=== PATIENT | female | born 1945 | race Caucasian/White ===

== ENCOUNTER 2021-03-22 21:10 | Emergency (ER) | payer MEDICARE, OTHER ==
[~2021-03-22] VITALS: Ht 162.6 cm; Wt 81.6 kg
--- NOTE | 2021-03-22 21:22 | NUR ---
Pt here for recheck of her cough, was seen here last week. Patient AAOX4. Denies any cardiovascular concern. No /GI concern.
--- NOTE | 2021-03-22 21:26 | NUR ---
Dr. Saez on bedside for MSE.
[2021-03-22] MEDS ORDERED: OXYCODONE/APAP 5-325 MG TABLET PO ONE ×2 (21:30→23:45)
[2021-03-22] MEDS ORDERED: MAG HYDROX/AL HYDROX/SIMETH 30 ML LIQUID UDC PO ONE (21:30)
[2021-03-22 21:38] LABS: BASOPHILS # (AUTO) 0.1 K/uL (0.0-8.0); BASOPHILS % (AUTO) 0.5 % (0.0-2.0); EOSINOPHILS # (AUTO) 0.7 K/uL (0.0-0.7); EOSINOPHILS % (AUTO) 3.6 % (0.0-7.0); HEMATOCRIT 35.8 % (31.2-41.9); HEMOGLOBIN 11.4 g/dL (10.9-14.3); LYMPHOCYTES # (AUTO) 4.2 K/uL (20.0-40.0); LYMPHOCYTES % (AUTO) 22.5 % (20.5-51.5); MEAN CORPUSCULAR HEMOGLOBIN 23.2 uug (24.7-32.8); MEAN CORPUSCULAR HGB CONC 32 g/dL (32.3-35.6); MEAN CORPUSCULAR VOLUME 72.5 fL (75.5-95.3); MONOCYTES % (AUTO) 5.4 % (0.0-11.0); NEUTROPHILS # (AUTO) 12.7 K/uL (1.8-8.9); PLATELET COUNT (AUTO) 387 K/uL (179-408); RED BLOOD CELL COUNT(AUTO) 4.93 MIL/uL (3.63-4.92); WHITE BLOOD COUNT (AUTO) 18.7 K/uL (3.8-11.8)
[2021-03-22] MEDS ORDERED: MAG HYDROX/AL HYDROX/SIMETH 30 ML LIQUID UDC ONE (21:40)
[2021-03-22] MEDS ORDERED: OXYCODONE/APAP 5-325 MG TABLET ONE ×2 (21:40→23:50)
--- NOTE | 2021-03-22 22:15 | NUR ---
Dr. Saez on bedside.
[2021-03-22 22:19] LABS: BAND % (MANUAL) 1 % (0-10); EOSINOPHILS % (MANUAL) 2 % (0-8); LYMPHOCYTES % (MANUAL) 22 % (20-40); MONOCYTES % (MANUAL) 1 % (2-10); NEUTROPHILS % (MANUAL) 74 % (42-75)
[2021-03-22] MEDS ORDERED: DOXYCYCLINE HYCLATE 100 MG TABLET PO ONE (23:45)
[2021-03-22] MEDS ORDERED: DOXYCYCLINE HYCLATE 100 MG TABLET ONE (23:50)
[2021-03-23] MEDS ORDERED: SWABABLE VALVE TRANSFER SET EA MC ONE (00:23)
[2021-03-23] MEDS ORDERED: IV NORMAL SALINE 250 ML IV ONE (00:23)
[2021-03-23] MEDS ORDERED: IOHEXOL 300MG/ML 100 ML INFUS..BTL ONE (00:23)
[2021-03-23] MEDS ORDERED: MAG HYDROX/AL HYDROX/SIMETH 30 ML LIQUID UDC ONE (00:24)
[2021-03-23] MEDS ORDERED: ONDANSETRON HCL 4 MG TABLET ONE (00:25)
[2021-03-23] MEDS ORDERED: ONDANSETRON HCL 4 MG TABLET PO ONE (00:30)
[2021-03-23] MEDS ORDERED: MAG HYDROX/AL HYDROX/SIMETH 30 ML LIQUID UDC PO ONE (00:30)
--- NOTE | 2021-03-23 00:51 | NUR ---
Back from CT.
[2021-03-23] MEDS ORDERED: OXYC-128 PO (01:30)
[2021-03-23] MEDS ORDERED: DOXY100T2 PO (01:30)
--- NOTE | 2021-03-23 02:12 | NUR ---
Back from CT.
[2021-03-23] MEDS ORDERED: ONDA4TAB5 GT (03:06)
--- NOTE | 2021-03-23 03:15 | NUR ---
Patient ambulated from the ER with steady gait. All belongings with patient.Patient discharged to home in stable condition. Written and verbal after care instructions given. Patient verbalizes understanding of instructions. Stressed follow up or return to ER for worsening s/s.
[2021-03-23 03:17] VITALS: BP 150/90
== END 2021-03-23 03:15 | disposition home or self-care (01) ==
LOC: ER 21:14
DX: K76.0 Fatty (change of) liver, not elsewhere classified (principal); Z86.73 Personal history of transient ischemic attack (TIA), and cerebral infarction without residual deficits; R00.0 Tachycardia, unspecified; Z96.652 Presence of left artificial knee joint; Z85.118 Personal history of other malignant neoplasm of bronchus and lung; Z90.2 Acquired absence of lung [part of]; E03.9 Hypothyroidism, unspecified; Z86.711 Personal history of pulmonary embolism; D72.829 Elevated white blood cell count, unspecified
CPT/HCPCS: Q9967 ×8; 36415; 70030-TC; 70486; 73060; 85025; A4663; J7050; Q0162

== ENCOUNTER 2021-04-08 01:22 | Emergency (ER) | payer MEDICARE, OTHER ==
[~2021-04-08] VITALS: Ht 165.1 cm; Wt 83.9 kg
[~2021-04-08 01:22] MED LIST: DOXY100T2 PO; ONDA4TAB5 GT; OXYC-128 PO
--- NOTE | 2021-04-08 04:08 | NUR ---
MD Nair in room to do MSE.
[2021-04-08] MEDS ORDERED: OXYCODONE/APAP 5-325 MG TABLET PO ONE (04:30)
[2021-04-08] MEDS ORDERED: OXYCODONE/APAP 5-325 MG TABLET ONE (04:41)
[2021-04-08 04:53] LABS: HEMATOCRIT 35.9 % (31.2-41.9); MEAN CORPUSCULAR HEMOGLOBIN 22.3 uug (24.7-32.8); MEAN CORPUSCULAR VOLUME 72.1 fL (75.5-95.3); PLATELET COUNT (AUTO) 424 K/uL (179-408)
--- NOTE | 2021-04-08 05:00 | NUR ---
Patient resting upright in room, no acute distress noted.
[2021-04-08 05:05] LABS: CREATININE 0.9 mg/dL (0.6-1.3); POTASSIUM 3.7 mmol/L (3.5-5.1)
[2021-04-08 05:17] LABS: BILIRUBIN,DIRECT 0.1 mg/dL (0.0-0.2); BILIRUBIN,TOTAL 0.3 mg/dL (0.2-1.0); TOTAL PROTEIN, SERUM 6.9 g/dL (6.4-8.2)
[2021-04-08] MEDS ORDERED: SWABABLE VALVE TRANSFER SET EA MC ONE (05:22)
[2021-04-08] MEDS ORDERED: IV NORMAL SALINE 250 ML IV ONE (05:22)
[2021-04-08] MEDS ORDERED: IOHEXOL 350 100 ML INFUS..BTL ONE (05:22)
--- NOTE | 2021-04-08 05:33 | NUR ---
Patient taken by certified surgical technologist out for CT Angiogram scan.
--- NOTE | 2021-04-08 05:57 | NUR ---
Patient brought back by radiology therapist from CT scan.
--- NOTE | 2021-04-08 06:26 | NUR ---
Patient provided snacks to eat ok per MD Nair. No acute distress noted.
[2021-04-08] MEDS ORDERED: DOXY100C2 PO (06:34)
[2021-04-08] MEDS ORDERED: OXYC-128 PO (06:34)
--- NOTE | 2021-04-08 06:54 | NUR ---
Hands off report given to Samuel DORANTES
--- NOTE | 2021-04-08 07:09 | NUR ---
PT WAS D/C'd TO HOME . D/C INSTUCTIONS GIVEN TO THE PT BY DR TAYLOR.
[2021-04-08 07:10] VITALS: BP 136/78
== END 2021-04-08 07:11 | disposition home or self-care (01) ==
LOC: ER 01:25
DX: J40 Bronchitis, not specified as acute or chronic (principal); Z20.822 Contact with and (suspected) exposure to COVID-19; K76.0 Fatty (change of) liver, not elsewhere classified; Z96.652 Presence of left artificial knee joint; Z86.711 Personal history of pulmonary embolism; Z85.118 Personal history of other malignant neoplasm of bronchus and lung; E03.9 Hypothyroidism, unspecified; Z79.01 Long term (current) use of anticoagulants; Z86.73 Personal history of transient ischemic attack (TIA), and cerebral infarction without residual deficits; R03.0 Elevated blood-pressure reading, without diagnosis of hypertension
CPT/HCPCS: 36415; 71275; 80048; 80076; 83605; 83880; 84484; 85025; 85730; 87426; 93005; 99285; Q9967; 70030-TC; A4663; J7050